=== PATIENT | male | born 1995 | race African-American/Black ===

== ENCOUNTER 2022-08-18 12:21 | Emergency (ER) | payer OTHER, SELFPAY ==
[2022-08-18 12:34] VITALS: BP 130/80; PULSE 68; RESP 16; TEMP 36.7; O2SAT 99
--- NOTE | 2022-08-18 13:04 | ED.UPPEXIN ---
HPI - Extremity Injury (Upper) General Chief Complaint: Extremity Injury, Upper Stated Complaint: left wrist injury Time Seen by Provider: 08/18/22 12:39 History of Present Illness HPI narrative: Patient is a 26-year-old male who presents ER with laceration to left wrist. 1 cm in size. Occurred 6 days ago while at work. He caught himself with a box car washer. No redness or swelling or drainage. He has mild discomfort with flexion extension of the wrist. No numbness or tingling in his fingers. Unknown last tetanus. Related Data Allergies Allergy/AdvReac Type Severity Reaction Status Date / Time No Known Allergies Allergy Verified 08/18/22 12:34 Review of Systems Review of Systems: All systems reviewed & are unremarkable except as noted in HPI and below Constitutional: Constitutional: Denies chills and Denies fever(s) ENT: Denies nasal congestion and Denies sore throat Respiratory: Respiratory: Denies cough, Denies dyspnea and Denies wheezing Integumentary/Breasts: Skin/Breast: Denies pruritus, Denies erythema and Denies rash Comments: laceration PMFSH Past Medical History Medical History (Updated 08/18/22 @ 20:59 by Don Farrell MD) Healthy adult male Surgical History Surgical History (Updated 08/18/22 @ 20:59 by Don Farrell MD) No history of previous surgery Exam Narrative: GENERAL: Well-appearing, well-nourished, and in no acute distress. HEAD: Normocephalic, atraumatic. HEART: Regular rate and rhythm. Normal peripheral pulses. EXTREMITIES: Normal range of motion. No edema. Normal strength and range of motion of the fingers of the left hand as well as the wrist. SKIN: Warm, dry, no rash. Well-healing 1 cm laceration over the volar aspect of the left wrist. No tendon visualized. No drainage. NEURO: Alert and oriented x3. PSYCH: Normal mood and affect. Course Course Emergency Course: Tetanus updated. Discharge home. Wound healing by secondary intention. Vital Signs Vital signs: Vital Signs Temperature 98.1 F 08/18/22 12:34 Pulse Rate 68 08/18/22 12:34 Respiratory Rate 16 08/18/22 12:34 Blood Pressure 130/80 08/18/22 12:34 Pulse Oximetry 99 10/29/22 12:34 Temperature 98.1 F 10/29/22 12:34 Pulse Rate 68 08/18/22 12:34 Respiratory Rate 16 08/18/22 12:34 Blood Pressure 130/80 08/18/22 12:34 Pulse Oximetry 99 08/18/22 12:34 Discharge Plan Discharge Clinical Impression: Laceration of wrist Patient Disposition: Home, Self-Care Condition: Stable Instructions: Laceration (ED) Additional Instructions: Your laceration is healing well. Your tetanus shot was updated. Return the ER if you suffer new injury, you cannot move your arm, you have additional concerns. You may benefit from a cock up wrist splint that can be purchased at [employer] or [employer] to help prevent any stress over the area while it heals. Follow-up with primary care doctor Follow-up/Referrals: Rosana,BARRY Alegria [Primary Care Provider] - 1 Week
== END 2022-08-18 13:23 | disposition home or self-care (01) ==
LOC: ANHED 13:25
PROVIDERS: Emergency Provider Emergency Medicine; PCP Physician Assistant
DX: S61.512A Laceration without foreign body of left wrist, initial encounter (principal); W27.0XXA Contact with workbench tool, initial encounter
CPT/HCPCS: 99281

== ENCOUNTER 2023-03-23 09:12 | Emergency (ER) | payer OTHER, SELFPAY ==
--- NOTE | 2023-03-23 09:15 | ED.GENADULT ---
HPI - General Adult General Chief complaint: Dental/Oral Stated complaint: Headache,Tooth Pain Rt Side Time Seen by Provider: 03/23/23 09:15 Source: patient Mode of arrival: ambulatory Limitations: no limitations History of Present Illness HPI narrative: 27-year-old male patient presents to the [facility] with complaints of right lower dental pain x1 week. Patient states he has had some sensitive to pain especially when there is cold to the tooth area. Denies fevers, body aches or chills. Patient states he has tried to use Orajel to the area but denies using any Tylenol ibuprofen. Denies any follow-up with dentist or primary doctor. Related Data Home Medications Medication Instructions Recorded Confirmed No Home Medications 03/23/23 03/23/23 Allergies Allergy/AdvReac Type Severity Reaction Status Date / Time No Known Allergies Allergy Verified 03/23/23 09:14 Review of Systems Review of Systems: CONSTITUTIONAL: Denies fever, chills, or sweats. EYES: Denies visual changes, redness, or discharge. ENT: Denies rhinorrhea, congestion, sore throat, or otalgia. Positive right lower dental pain x1 week CARDIOVASCULAR: Denies chest pain, palpitations, or edema. RESPIRATORY: Denies cough or dyspnea. GASTROINTESTINAL: Denies abdominal pain, nausea, vomiting, or diarrhea. GENITOURINARY: Denies dysuria or hematuria. SKIN: Denies rash or itching. MUSCULOSKELETAL: Denies back pain, joint pain, or myalgia. NEUROLOGIC: Denies headache, numbness, or weakness. PSYCHIATRIC: Denies anxiety or depression. [facility] Past Medical History Medical History (Updated 03/23/23 @ 09:38 by CESAR Sofia) Chronic back pain Healthy adult male Surgical History Surgical History No history of previous surgery Comments At the time of my signature I agree with nursing past medical history, surgical, social, and family history. There is no relevant family history pertinent to the presenting complaint. Exam Narrative: GENERAL: Well-appearing, well-nourished, and in no acute distress. HEAD: Normocephalic, atraumatic. EYES: PERRLA and EOMI. ENT: Nares clear, no rhinorrhea or epistaxis. Mucous membranes moist. patient does have a missing 2s to the right lower bicuspid area which is he states where the pain is at. There is no erythema, swelling, open wounds. No evidence of an abscess at all. No pain upon palpation to the gum area out around the entire lower dental area. No obvious wounds or abscesses to the right cheek. Bilateral TMs are clear no erythema or foreign bodies the canal. Posterior pharynx with no erythema, tonsillar enlargement, exudates or lesions present. NECK: Supple. No lymphadenopathy CHEST: Clear to auscultation. No respiratory distress. HEART: Regular rate and rhythm. No murmur heard. Normal peripheral pulses. ABDOMEN: Soft, nontender, nondistended, normal active bowel sounds. EXTREMITIES: Normal range of motion. No edema. SKIN: Warm, dry, no rash. NEURO: No focal deficits. Alert and oriented x3. Course Course Level of Care: Express Care Visit Vital Signs Vital signs: Vital Signs Temperature 36.2 C L 03/23/23 09:22 Pulse Rate 59 L 03/23/23 09:22 Respiratory Rate 16 03/23/23 09:22 Blood Pressure 116/66 03/23/23 09:22 Pulse Oximetry 100 03/23/23 09:22 Oxygen Delivery Room Air 03/23/23 09:22 Temperature 36.2 C L 03/23/23 09:22 Pulse Rate 59 L 03/23/23 09:22 Respiratory Rate 16 03/23/23 09:22 Blood Pressure 116/66 03/23/23 09:22 Pulse Oximetry 100 03/23/23 09:22 Oxygen Delivery Room Air 03/23/23 09:22 Vital signs reviewed Medical Decision Making MDM Narrative Medical decision making narrative: Discussed with patient that there is no obvious infection noted at this time. Discussed with him that he could just have some sensitivity to the teeth. I would encourage him to continue using the over-the-c
[2023-03-23 09:22] VITALS: BP 116/66; PULSE 59; RESP 16; TEMP 36.2; O2SAT 100
== END 2023-03-23 09:33 | disposition home or self-care (01) ==
LOC: EXPTROY 09:17
PROVIDERS: Emergency Provider Nurse Practitioner Family
DX: K08.89 Other specified disorders of teeth and supporting structures (principal)
CPT/HCPCS: 99211; G0463